=== PATIENT | male | born 1965 | race Caucasian/White ===

== ENCOUNTER 2017-11-24 01:27 | Inpatient (IN) | payer OTHER ==
[~2017-11-24] VITALS: Ht 190.5 cm; Wt 125.0 kg
[~2017-11-24 01:27] MED LIST: ALPR1TAB2 PO; AMIT150T PO; AMIT75TA PO; BACL20TA PO; BACL50AM EP; BETH10TA12 PO; CITA40TA5 PO; DIAZ10TA PO; DIAZ10TA4 PO; ESZO3TAB28 PO; FURO-93 PO; GABA-827 PO; GABA800T2 PO; HYDR-3653 PO; HYDR1LIQ6 CERVICAL; HYDR25TA6 PO; NAPR-856 PO; OXYC-307 PO; OXYC10TA47 PO; OXYC10TA6 PO; TAMS-11 PO; TERI14TA PO; TIZA4TAB PO
[2017-11-24] MEDS ORDERED: SODIUM CHLORIDE 0.9% 1,000 ML IV ONE (01:59)
[2017-11-24] MEDS ORDERED: ALBUTEROL/IPRATROPIUM 2.5MG/0.5MG, 3 ML NPPB ONE (02:00)
[2017-11-24] MEDS ORDERED: SODIUM CHLORIDE FLUSH 10ML SYR IVF ONE (02:00)
[2017-11-24] MEDS ORDERED: ALBUTEROL/IPRATROPIUM 2.5MG/0.5MG, 3 ML ONE (02:06)
[2017-11-24] MEDS: PLEASE ENTER ALLERGIES MC SCH ×2 (02:28→05:47)
[2017-11-24] MEDS ORDERED: HYDROmorphone 1 MG/ML, 1ML IV ONE (02:30)
[2017-11-24] MEDS ORDERED: HYDROmorphone 2 MG/ML, 1ML ONE (02:38)
[2017-11-24 02:44] LABS: BASOPHILS # (AUTO) 0.02 x10^3/uL (0-0.1); BASOPHILS % (AUTO) 0 % (0-1); EOSINOPHILS # (AUTO) 0.13 x10^3/uL (0-0.4); EOSINOPHILS % (AUTO) 2 % (1-7); LYMPHOCYTES # (AUTO) 1.35 x10^3/uL (1-3.4); LYMPHOCYTES % (AUTO) 21 % (22-44); MD NO; MEAN CORPUSCULAR HEMOGLOBIN 31.3 pg (27.5-34.5); MEAN CORPUSCULAR HGB CONC 33.4 g/dL (33.2-36.2); MEAN CORPUSCULAR VOLUME 93.7 fL (81-97); MEAN PLATELET VOLUME 7.6 fL (7.4-10.4); MONOCYTES # (AUTO) 0.59 x10^3/uL (0.2-0.8); MONOCYTES % (AUTO) 9 % (2-9); NEUTROPHILS # (AUTO) 4.42 x10^3/uL (1.8-6.8); NEUTROPHILS % (AUTO) 68 % (42-75); PLATELET COUNT 228 x10^3/uL (130-400); RED BLOOD COUNT 4.11 x10^6/uL (4.38-5.82); RED CELL DISTRIBUTION WIDTH 14.6 % (9.4-14.8)
[2017-11-24 02:53] LABS: ALANINE AMINOTRANSFERASE 21 U/L (12-78); ALBUMIN 3.3 g/dL (3.4-5.0); ANION GAP 6 mmol/L (5-15); CALCIUM 9.3 mg/dL (8.5-10.1); CHLORIDE 103 mmol/L (98-107); CREATININE 0.91 mg/dL (0.7-1.3)
[2017-11-24 02:57] LABS: ALKALINE PHOSPHATASE 91 U/L (45-117); BILIRUBIN,TOTAL 0.4 mg/dL (0.2-1.0); TOTAL PROTEIN 7.9 g/dL (6.4-8.2); TROPONIN I 0.037 ng/mL (0.000-0.045)
[2017-11-24 03:52] LABS: MICROSCOPIC NOT IND
[2017-11-24 04:00] LABS: CULTURE INDICATED? NO
[2017-11-24] MEDS ORDERED: SODIUM CHLORIDE 0.9% 1,000 ML IV SCH (05:29)
[2017-11-24] MEDS ORDERED: ONDANSETRON 2MG/ML, 2ML IVPush PRN (05:30)
[2017-11-24] MEDS ORDERED: hydrALAzine 20 MG/ML, 1ML IVPush PRN (05:30)
[2017-11-24] MEDS ORDERED: BISACODYL 10 MG SUPP PR PRN (05:30)
[2017-11-24] MEDS ORDERED: HYDROmorphone 2 MG/ML, 1ML IVPush PRN (05:30)
[2017-11-24] MEDS ORDERED: LABETALOL 5MG/ML, 20ML IVPush PRN (05:30)
[2017-11-24] MEDS ORDERED: OXYcodone IR 5MG TABLET PO PRN (05:30)
[2017-11-24] MEDS ORDERED: PROMETHAZINE 25 MG/ML, 1ML IM PRN (05:30)
[2017-11-24] MEDS ORDERED: ONDANSETRON ODT 4 MG PO PRN (05:30)
[2017-11-24] MEDS ORDERED: TAMS-11 PO (05:41)
[2017-11-24] MEDS ORDERED: ALPR1TAB2 PO (05:41)
[2017-11-24] MEDS ORDERED: DIVA500T2 PO (05:41)
[2017-11-24] MEDS ORDERED: BETH5TAB PO (05:41)
[2017-11-24] MEDS ORDERED: DIAZ10TA PO (05:41)
[2017-11-24] MEDS ORDERED: FLUO40CA9 PO (05:41)
[2017-11-24] MEDS ORDERED: GABA-827 PO (05:41)
[2017-11-24] MEDS ORDERED: OXYC10TA47 PO (05:41)
[2017-11-24] MEDS ORDERED: AMOX875T PO (05:41)
[2017-11-24] MEDS: HEPARIN 5,000 UNITS/ML, 1ML SQ SCH ×3 (05:54→21:54)
[2017-11-24 06:17] LABS: FREE T4 (FREE THYROXINE) 0.8 ng/dL (0.76-1.46); THYROID STIMULATING HORMONE 0.5 mIU/L (0.358-3.740)
[2017-11-24 08:39] VITALS: BP 110/69
[2017-11-24 09:02] LABS: HCT (SEDRATE) 34.3 % (39.2-51.8)
[2017-11-24] MEDS: TAMSULOSIN 0.4 MG CAP.ER.24H PO SCH (10:14)
[2017-11-24] MEDS: SENNA/DOCUSATE TABLET PO SCH (10:17)
[2017-11-24 15:18] VITALS: BP 121/73
[2017-11-24 19:35] VITALS: BP 144/77
[2017-11-24] MEDS: ACETAMINOPHEN 325 MG TABLET PO PRN (21:53)
[2017-11-25 02:14] VITALS: BP 123/72
[2017-11-25 05:24] LABS: BASOPHILS # (AUTO) 0.05 x10^3/uL (0-0.1); BASOPHILS % (AUTO) 1 % (0-1); EOSINOPHILS # (AUTO) 0.14 x10^3/uL (0-0.4); EOSINOPHILS % (AUTO) 2 % (1-7); LYMPHOCYTES # (AUTO) 1.47 x10^3/uL (1-3.4); LYMPHOCYTES % (AUTO) 18 % (22-44); MD NO; MEAN CORPUSCULAR HEMOGLOBIN 31.3 pg (27.5-34.5); MEAN CORPUSCULAR HGB CONC 33.5 g/dL (33.2-36.2); MEAN CORPUSCULAR VOLUME 93.3 fL (81-97); MONOCYTES # (AUTO) 0.93 x10^3/uL (0.2-0.8); MONOCYTES % (AUTO) 12 % (2-9); NEUTROPHILS # (AUTO) 5.53 x10^3/uL (1.8-6.8); NEUTROPHILS % (AUTO) 68 % (42-75); PLATELET COUNT 205 x10^3/uL (130-400); RED BLOOD COUNT 3.83 x10^6/uL (4.38-5.82); RED CELL DISTRIBUTION WIDTH 13.9 % (9.4-14.8)
[2017-11-25 05:31] LABS: ANION GAP 8 mmol/L (5-15); CALCIUM 8.7 mg/dL (8.5-10.1); CHLORIDE 105 mmol/L (98-107)
[2017-11-25 05:36] LABS: ALANINE AMINOTRANSFERASE 15 U/L (12-78); ALBUMIN 2.8 g/dL (3.4-5.0); ALKALINE PHOSPHATASE 78 U/L (45-117); BILIRUBIN,TOTAL 0.4 mg/dL (0.2-1.0); CHOLESTEROL, TOTAL 152 mg/dL (140-239); CREATININE 0.79 mg/dL (0.7-1.3); HDL CHOL % 25 % (26-37); HDL CHOLESTEROL (DIRECT) 38 mg/dL (40-60); LDL CHOLESTEROL,CALCULATED 98 mg/dL (54-169); LDL/HDL RATIO 2.6 (0.5-3.0); TOTAL PROTEIN 6.7 g/dL (6.4-8.2); TRIGLYCERIDES 82 mg/dL (50-200); VLDL CHOLESTEROL 16 mg/dL (0-25)
[2017-11-25] MEDS: HEPARIN 5,000 UNITS/ML, 1ML SQ SCH ×3 (05:57→20:59)
[2017-11-25] MEDS: ACETAMINOPHEN 325 MG TABLET PO PRN (05:57)
[2017-11-25] MEDS ORDERED: GADOBUTROL 15 MMOL/15 ML VIAL ONE (11:29)
[2017-11-25] MEDS: FLUOXETINE HCL 20 MG CAPSULE PO SCH (13:17)
[2017-11-25] MEDS: SENNA/DOCUSATE TABLET PO SCH (13:17)
[2017-11-25] MEDS: DIVALPROEX 500 MG TABLET.DR PO SCH ×2 (13:17→21:00)
[2017-11-25] MEDS: TAMSULOSIN 0.4 MG CAP.ER.24H PO SCH (13:18)
[2017-11-25] MEDS ORDERED: OXYC10TA6 PO (13:41)
[2017-11-25] MEDS ORDERED: FINA5TAB4 PO (13:41)
[2017-11-25] MEDS ORDERED: DIAZ10TA4 PO (13:41)
[2017-11-25] MEDS ORDERED: BETH10TA12 PO (13:41)
[2017-11-25] MEDS ORDERED: ALPR1TAB6 PO (13:41)
[2017-11-25] MEDS ORDERED: GABA800T2 PO ×2 (13:41→15:50)
[2017-11-25 15:31] VITALS: BP 116/78
[2017-11-25 20:43] VITALS: BP 138/83
[2017-11-25] MEDS: POLYETHYLENE GLYCOL 17 GM PACKET PO PRN ×2 (21:00→21:33)
[2017-11-26 02:39] VITALS: BP 105/60
[2017-11-26] MEDS: HEPARIN 5,000 UNITS/ML, 1ML SQ SCH (05:25)
[2017-11-26 07:45] VITALS: BP 122/71
[2017-11-26] MEDS ORDERED: BETHANECHOL 10 MG TABLET PO SCH (09:00)
[2017-11-26] MEDS ORDERED: GABAPENTIN 400 MG CAPSULE PO SCH (09:00)
[2017-11-26] MEDS ORDERED: FINASTERIDE 5 MG TABLET PO SCH (09:00)
[2017-11-26] MEDS: SENNA/DOCUSATE TABLET PO SCH (09:44)
[2017-11-26] MEDS: FLUOXETINE HCL 20 MG CAPSULE PO SCH (09:44)
[2017-11-26] MEDS: DIVALPROEX 500 MG TABLET.DR PO SCH (09:44)
[2017-11-26] MEDS: TAMSULOSIN 0.4 MG CAP.ER.24H PO SCH (09:44)
== END 2017-11-26 12:45 | disposition home health service (06) | DRG 189 ==
LOC: ED 03:12 → EDIP 04:54 → 4WST 05:47
PROVIDERS: ADMIT Internal Medicine; ATTEND Internal Medicine
DX: J96.00 Acute respiratory failure, unspecified whether with hypoxia or hypercapnia (principal); R53.2 Functional quadriplegia; E44.0 Moderate protein-calorie malnutrition; M48.56XA Collapsed vertebra, not elsewhere classified, lumbar region, initial encounter for fracture; G35 Multiple sclerosis; G47.33 Obstructive sleep apnea (adult) (pediatric); D64.9 Anemia, unspecified; G47.37 Central sleep apnea in conditions classified elsewhere; G89.29 Other chronic pain; Z99.3 Dependence on wheelchair; Z87.891 Personal history of nicotine dependence; Z87.19 Personal history of other diseases of the digestive system; Z87.01 Personal history of pneumonia (recurrent); Z99.81 Dependence on supplemental oxygen; Z79.899 Other long term (current) drug therapy; Z68.34 Body mass index [BMI] 34.0-34.9, adult
CPT/HCPCS: 36415; 36600; 70553; 71045; 72156; 72157; 72158; 80053; 80061; 81003; 82803; 83036; 83605; 83735; 83880; 84100; 84145; 84439; 84443; 84484; 85025; 85651; 86140; 87040; 93005; 93306; 94640; 96361; 96374; A9585; G0378; J1170; J1644; Q0162; J7030